=== PATIENT | female | born 1930 | race Caucasian/White ===

== ENCOUNTER 2018-04-12 12:01 | Emergency (ER) | payer MEDICARE, OTHER ==
[~2018-04-12] VITALS: Ht 147.3 cm; Wt 46.0 kg
[~2018-04-12 12:01] MED LIST: AMIO200T40 PO; APIX2.5T PO; CALC-854 PO; DIPH-629 PO; FLUT16SP2 BOTHNARES; HYDR-569 PO; LEFL20TA PO; MULT-38 PO
[2018-04-12 12:40] LABS: BASOPHILS # (AUTO) 0.1 X10'3 (0-0.2); BASOPHILS % (AUTO) 1.1 % (0-1); EOSINOPHILS # (AUTO) 0.1 X10'3 (0-0.9); EOSINOPHILS % (AUTO) 1.7 % (0-6); HEMOGLOBIN 12.9 g/dl (12.0-16.0); LYMPHOCYTES # (AUTO) 1.1 X10'3 (1.1-4.8); LYMPHOCYTES % (AUTO) 21.5 % (21-51); MEAN CORPUSCULAR HEMOGLOBIN 30.4 PG (27.0-31.0); MEAN CORPUSCULAR HGB CONC 33.1 % (33.0-36.5); MEAN CORPUSCULAR VOLUME 91.9 FL (78-98); MEAN PLATELET VOLUME 7.5 FL (7.4-10.4); MONOCYTES # (AUTO) 0.8 X10'3 (0-0.9); MONOCYTES % (AUTO) 15.9 % (2-12); NEUTROPHILS # (AUTO) 3.1 X10'3 (1.8-7.7); NEUTROPHILS % (AUTO) 59.8 % (42-75); PLATELET COUNT 187 X10'3 (140-440); RED BLOOD COUNT 4.24 X10'6 (4.20-5.60); RED CELL DISTRIBUTION WIDTH 20.7 % (11.5-14.5); WHITE BLOOD COUNT 5.2 X10'3 (4.5-11.0)
[2018-04-12 12:57] LABS: INR 1.1 INR; PARTIAL THROMBOPLASTIN TIME 29 SECONDS (22-32); PROTHROMBIN TIME 11.8 SECONDS (9.0-12.0)
[2018-04-12 13:00] LABS: ALANINE AMINOTRANSFERASE 28 U/L (12-78); ALBUMIN 3.4 G/DL (3.4-5.0); ALBUMIN/GLOBULIN RATIO 0.9 (1.1-1.5); ALKALINE PHOSPHATASE 62 IU/L (46-116); ANION GAP 11 (8-16); ASPARTATE AMINO TRANSFERASE 32 U/L (10-37); BILIRUBIN,TOTAL 0.7 MG/DL (0.1-1.0); BLOOD UREA NITROGEN 17 MG/DL (7-18); BUN/CREATININE RATIO 13.5 (6.6-38.0); CALCIUM 8.8 MG/DL (8.5-10.1); CHLORIDE 102 MMOL/L (99-107); CREATININE 1.26 MG/DL (0.40-0.90); GLUCOSE 93 MG/DL (70-104); SODIUM 137 MMOL/L (135-145); TOTAL CARBON DIOXIDE 24.3 MMOL/L (24-32); TOTAL PROTEIN 7.1 G/DL (6.4-8.2); eGFR 40 ML/MIN
[2018-04-12 13:07] LABS: PLATELET ESTIMATE NORMAL
[2018-04-12 13:08] LABS: ANISOCYTOSIS 3+; POIKILOCYTOSIS 2+
[2018-04-12 13:09] LABS: POLYCHROMASIA 1+
[2018-04-12] MEDS ORDERED: normal saline 1000ml 1,000 ML IV ONE (13:20)
[2018-04-12 13:24] LABS: TARGET CELLS FEW; TEAR DROP CELLS 1+
[2018-04-12 13:25] LABS: ACANTHOCYTES 1+; SCHISTOCYTES 2+; STOMATOCYTES FEW
[2018-04-12] MEDS ORDERED: fentaNYL/PF 50MCG/1 ML 2ML syringe IV ONE (13:25)
[2018-04-12] MEDS ORDERED: ondansetron/PF 4mg/2ml inj IV ONE (13:25)
[2018-04-12 13:26] LABS: BURR CELLS FEW
[2018-04-12 13:46] LABS: D-DIMER 0.42 MG/L FEU (0-0.50)
[2018-04-12] MEDS ORDERED: morphine 4 MG/ML inj SYRINge IV ONE (14:50)
[2018-04-12] MEDS ORDERED: LIDOcaine Viscous 15ml cup PO ONE (15:45)
[2018-04-12] MEDS ORDERED: mag hydrox/Alum hydrox/simeth 30ml oral suspension PO ONE (15:45)
[2018-04-12] MEDS: baclofen 10mg tablet PO ONE ×2 (16:25→18:05)
[2018-04-12 18:05] VITALS: BP 126/65
[2018-04-14] MEDS ORDERED: LIDO700A47 TOP (08:50)
[2018-04-14] MEDS ORDERED: AMIO100T3 PO (09:50)
[2018-04-14] MEDS ORDERED: ASPI81TA52 PO (09:53)
[2018-04-14] MEDS ORDERED: CARV3.122 PO (09:53)
[2018-04-14] MEDS ORDERED: ATOR20TA PO (09:53)
[2018-04-14] MEDS ORDERED: FURO40TA4 PO (10:00)
[2018-04-14] MEDS ORDERED: GABA-532 PO (10:00)
[2018-04-14] MEDS ORDERED: FAMO20TA8 PO (10:00)
[2018-04-14] MEDS ORDERED: FERR15DR PO (10:00)
[2018-04-14] MEDS ORDERED: POTA20TA19 PO (10:00)
== END 2018-04-12 18:05 | disposition home or self-care (01) ==
LOC: ER 12:01
DX: M54.6 Pain in thoracic spine (principal); I48.91 Unspecified atrial fibrillation; M06.9 Rheumatoid arthritis, unspecified; Z88.8 Allergy status to other drugs, medicaments and biological substances
CPT/HCPCS: 36415; 71045; 71250; 80053; 84484; 85025; 85379; 85610; 85730; 96374; 96375; 99285; J2270; J2405; J3010; J7030